=== PATIENT | female | born 1955 | race Caucasian/White ===

== ENCOUNTER 2018-04-09 14:24 | Emergency (ER) | payer OTHER ==
[~2018-04-09] VITALS: Ht 162.6 cm; Wt 95.3 kg
[2018-04-09] MEDS ORDERED: LANTUS SOL100 UNIT/1 (14:39)
== END 2018-04-09 18:59 | disposition home or self-care (01) ==
LOC: ER 14:24
DX: R10.31 Right lower quadrant pain (principal)

== ENCOUNTER 2020-05-24 06:00 | Day surgery (SDC) | payer OTHER ==
[~2020-05-24 06:00] MED LIST: AVAPRO300 MG PO; HYDRODIURIL12.5 MG PO; KOMBIGLYZE XR1 EAC1 PO; LANTUS SOL100 UNIT/1; LIPITOR20 MG PO; PLAVIX75 MG PO; SYNTHROID137 MCG PO; VERAPAMIL ER120 MG PO
[2020-05-24] MEDS ORDERED: ULTRACET PO (10:42)
== END 2020-05-24 16:20 | disposition home or self-care (01) ==
LOC: CIR.AMB 06:00
PROVIDERS: ATTEND Surgery
DX: T82.594A Other mechanical complication of infusion catheter, initial encounter (principal); Z20.822 Contact with and (suspected) exposure to COVID-19